=== PATIENT | female | born 1985 | race Caucasian/White ===

== ENCOUNTER 2019-03-18 22:44 | Inpatient (IN) | payer OTHER ==
[~2019-03-18] VITALS: Ht 162.6 cm; Wt 92.1 kg
[2019-03-18] MEDS ORDERED: OXYTOCIN 30 UNITS/LACT RINGERS 500 ML IV PRN (23:37)
[2019-03-18] MEDS ORDERED: OXYTOCIN 30 UNITS/LACT RINGERS 500 ML IV ONE (23:37)
[2019-03-18] MEDS ORDERED: RINGERS SOLUTION,LACTATED 1,000 ML IV PRN (23:37)
[2019-03-18 23:45] VITALS: BP 108/64
[2019-03-18] MEDS ORDERED: CITRIC ACID/SODIUM CITRATE 30 ML SOLUTION UDCUP PO PRN (23:45)
[2019-03-18] MEDS ORDERED: METOCLOPRAMIDE HCL 5 MG/ML 2 ML VIAL IVP PRN (23:45)
[2019-03-18] MEDS ORDERED: FentaNYL CITRATE-PF 100 MCG/2 ML VIAL IVP PRN (23:45)
[2019-03-19] MEDS: RINGERS SOLUTION,LACTATED 1,000 ML IV SCH ×3 (00:05→04:34)
[2019-03-19 00:11] LABS: LYMPHOCYTES # (AUTO) 1.8 K/uL (1.0-4.8); MEAN CORPUSCULAR VOLUME 88 fL (80-100); MONOCYTES # (AUTO) 0.8 K/uL (0.1-1.0); NEUTROPHILS # (AUTO) 7.1 K/uL (1.8-7.7)
[2019-03-19 00:15] LABS: BASOPHILS % (AUTO) 0.5 % (0.0-2.0); EOSINOPHILS % (AUTO) 1.2 % (1.0-6.0); HEMATOCRIT 36.9 % (36-46); HEMOGLOBIN 12.7 g/dL (12.0-16.0); LYMPHOCYTES % (AUTO) 18.4 % (22.0-44.0); MEAN CORPUSCULAR HEMOGLOBIN 30.2 pg (26.0-34.0); MEAN CORPUSCULAR HGB CONC 34.4 G/dL (31.0-37.0); MONOCYTES % (AUTO) 7.8 % (2.0-9.0); NEUTROPHILS % (AUTO) 72.1 % (40.0-70.0); PLATELET COUNT (AUTO)-OB 173 K/uL (150-450); RED CELL DISTRIBUTION WIDTH 12.9 % (11.5-14.5)
[2019-03-19] MEDS ORDERED: PREN1TAB80 PO (00:34)
[2019-03-19] MEDS ORDERED: ROPIVACAINE HCL/PF 0.2% 100 ML ED ONE (01:01)
[2019-03-19] MEDS ORDERED: ONDANSETRON HCL 4 MG/2 ML VIAL IVP PRN (01:30)
[2019-03-19] MEDS ORDERED: ROPIVACAINE HCL/PF 0.2% 100 ML ED PRN (01:30)
[2019-03-19] MEDS ORDERED: DiphenhydrAMINE HCL 50 MG/ML VIAL IVP PRN (01:30)
[2019-03-19] MEDS: OXYGEN THERAPY IH SCH ×2 (08:00→20:00)
[2019-03-19] MEDS ORDERED: MINERAL OIL 30 ML UDCUP VG ONE (09:15)
[2019-03-19] MEDS ORDERED: MINERAL OIL 30 ML UDCUP ONE (09:16)
[2019-03-19] MEDS ORDERED: OXYTOCIN 30 UNITS/LACT RINGERS 500 ML IV ONE (10:31)
[2019-03-19] MEDS ORDERED: GLYCERIN/WITCH HAZEL LEAF 40 PADS JAR TP PRN (10:45)
[2019-03-19] MEDS ORDERED: LIDOCAINE/PF 1% 30 ML VIAL INJ PRN (10:45)
[2019-03-19] MEDS ORDERED: OxyCODONE HCL/ACETAMINOPHEN 5-325 MG TABLET PO PRN (10:45)
[2019-03-19] MEDS ORDERED: BENZOCAINE 20%/MENTHOL 56 GM SPRAY CANISTER TP PRN (10:45)
[2019-03-19] MEDS ORDERED: LANOLIN 7 GM OINTMENT TP PRN (10:45)
[2019-03-19] MEDS ORDERED: MAGNESIUM HYDROXIDE SUSPENSION 30 ML UDCUP PO PRN (10:45)
[2019-03-19] MEDS: IBUPROFEN 800 MG TABLET PO PRN ×2 (11:47→18:57)
[2019-03-19] MEDS: OxyCODONE HCL/ACETAMINOPHEN 5-325 MG TABLET PO PRN ×2 (15:44→20:38)
[2019-03-20] MEDS: IBUPROFEN 800 MG TABLET PO PRN (04:45)
[2019-03-20 06:50] LABS: BASOPHILS % (AUTO) 0.2 % (0.0-2.0); EOSINOPHILS % (AUTO) 1.1 % (1.0-6.0); HEMATOCRIT 32.4 % (36-46); LYMPHOCYTES # (AUTO) 1.9 K/uL (1.0-4.8); LYMPHOCYTES % (AUTO) 16.2 % (22.0-44.0); MEAN CORPUSCULAR HEMOGLOBIN 30.1 pg (26.0-34.0); MEAN CORPUSCULAR HGB CONC 33.9 G/dL (31.0-37.0); MEAN CORPUSCULAR VOLUME 89 fL (80-100); MONOCYTES % (AUTO) 8.4 % (2.0-9.0); NEUTROPHILS # (AUTO) 8.6 K/uL (1.8-7.7); NEUTROPHILS % (AUTO) 74.1 % (40.0-70.0); PLATELET COUNT (AUTO)-OB 138 K/uL (150-450); RED BLOOD CELL COUNT(AUTO) 3.65 MIL/uL (4.00-5.20); RED CELL DISTRIBUTION WIDTH 13.2 % (11.5-14.5)
== END 2019-03-20 10:20 | disposition home or self-care (01) | DRG 807 ==
LOC: 4S 22:44 → OBSVTOIN 22:44
PROVIDERS: ADMIT Obstetrics & Gynecology; ATTEND Obstetrics & Gynecology
PROC: 10E0XZZ Delivery of Products of Conception, External Approach (ICD-10-PCS; principal; 2019-03-19)
PROC: 0UQGXZZ Repair Vagina, External Approach (ICD-10-PCS; 2019-03-19)
PROC: 3E0R3BZ Introduction of Anesthetic Agent into Spinal Canal, Percutaneous Approach (ICD-10-PCS; 2019-03-19)
PROC: 00HU33Z Insertion of Infusion Device into Spinal Canal, Percutaneous Approach (ICD-10-PCS; 2019-03-19)
DX: O71.4 Obstetric high vaginal laceration alone (principal); Z37.0 Single live birth; Z3A.39 39 weeks gestation of pregnancy
CPT/HCPCS: 86850; 86900; 86901; J2590; J2795; J7120